=== PATIENT | male | born 1990 | race Caucasian/White ===

== ENCOUNTER 2016-11-30 18:40 | Emergency (ER) | payer SELFPAY ==
[2016-11-30 19:02] VITALS: BP 134/71; PULSE 67; TEMP 99.4; BMI 22.3
--- NOTE | 2016-11-30 19:14 | PDOC ---
[id number] is a 26 year old male, with a significant past medical history migraines (aleve), who presents to the emergency department with right ear pain since yesterday and a migraine headache today. He states he had a low-grade fever and runny nose on Monday, which resolved on Monday. He reports the onset of his ear pain occurred on Monday and has progressed today with involvement of a right-sided migraine. He states his migraines are typically right-sided and managed with Aleve. He reports taking Aleve today with little to no relief. He also reports using eardrops he picked up from [employer] this morning with no relief of pain. He also states he uses earbuds for listening to music. He denies recent travel or sick contacts. He denies chest pain, shortness of breath, headache and dizziness. He denies fever, chills, nausea, vomit, diarrhea and constipation. He denies dysuria, frequency, urgency and hematuria. Allergies: NKDA Social history: daily tobacco use (1 pack every 3 days) <Lety Cedillo - Last Filed: 11/30/16 19:41> <Ani Donohue - Last Filed: 12/01/16 04:47> - General Chief Complaint: Pain Stated Complaint: RIGHT EAR ACHE Time Seen by Provider: 11/30/16 19:12 Past History <Lety Cedillo - Last Filed: 11/30/16 19:41> - Past Medical History Cardiac Disorders: Yes (HEART MURMUR) - Immunization History Immunization Up to Date: Yes - Psycho/Social/Smoking Cessation Hx Anxiety: No Suicidal Ideation: No Smoking Status: Yes Smoking History: Current every day smoker Have you smoked in the past 12 months: Yes Number of Cigarettes Smoked Daily: 10 Information on smoking cessation initiated: Yes 'Breaking Loose' booklet given: 11/30/16 Hx Alcohol Use: No Drug/Substance Use Hx: Yes (MARIJUANA) Substance Use Type: Marijuana Hx Substance Use Treatment: No <Ani Donohue - Last Filed: 12/01/16 04:47> - Past Medical History Allergies/Adverse Reactions: Allergies Allergy/AdvReac Type Severity Reaction Status Date / Time No Known Allergies Allergy Verified 11/30/16 18:45 Home Medications: Ambulatory Orders Amox-Tr/K Cl [Augmentin - 875Mg Tablet] 1 tab PO BID #10 tablet 11/30/16 Neomycin/Polymyxn/Hc [Cortisporin Otic Suspenstion -] 5 drop AD Q4HWA #1 bottle 11/30/16 Review of Systems - Review of Systems Able to Perform ROS?: Yes Comments:: 11/30/16 19:31 CONSTITUTIONAL: Absent: fever, no chills, no fatigue EYES: Absent: visual changes HEENT: (+) right ear pain and migraine headache. Absent: no sore throat CARDIOVASCULAR: Absent: chest pain, no palpitations RESPIRATORY: Absent: cough, no SOB GI: Absent: abdominal pain, no nausea, no vomiting, no constipation, no diarrhea GENITOURINARY: Absent: dysuria, no frequency, no hematuria MUSKULOSKELETAL: Absent: back pain, no arthralgia, no myalgia SKIN: Absent: rash NEURO: Absent: headache <Lety Cedillo - Last Filed: 11/30/16 19:41> *Physical Exam - Vital Signs Last Vital Signs Temp Pulse Resp BP Pulse Ox 99.4 F 67 18 134/71 100 11/30/16 18:45 11/30/16 18:45 11/30/16 18:45 11/30/16 18:45 11/30/16 18:45 - Physical Exam Comments: 11/30/16 19:35 GENERAL: The patient is awake, alert, and fully oriented, in no acute distress. HEAD: Normal with no signs of trauma. EYES: Pupils equal, round and reactive to light, extraocular movements intact, sclera anicteric, conjunctiva clear with no pallor. ENT:(+) moderately erythematous right external canal. TM was dull, moderately bulging and erythematous. No clear perforation in TM . Mild pain with movement of the external portion of the ear. Left ear normal. (+) Throat is mildly erythematous. No exudates. nares patent, Moist mucous membranes. NECK: Normal range of motion, supple without lymphadenopathy, JVD, or masses. LUNGS: Breath sounds equal, clear to auscultation bilaterally. No wheeze/ crackles. HEART: Regular rate and rhythm, normal S1 and S2 without murmur or rub. ABDOMEN: Soft/nontender/nondistended. BS wnl. No guarding or rebound. No palpable masses. No hepatosplenomegaly. EXTREMITIES: Normal range of motion, no edema. No clubbing or cyanosis. No cords , erythema, or tenderness. NEUROLOGICAL: Cranial nerves II through XII grossly intact. Normal speech, normal gait. PSYCH: Normal mood, normal affect. SKIN: Warm, Dry, normal turgor, no rashes or lesions noted. <Lety Cedillo - Last Filed: 11/30/16 19:41> - Vital Signs Last Vital Signs Temp Pulse Resp BP Pulse Ox 99.4 F 67 18 134/71 100 11/30/16 18:45 11/30/16 18:45 11/30/16 18:45 11/30/16 18:45 11/30/16 18:45 <Ani Donohue - Last Filed: 12/01/16 04:47> Medical Decision Making - Medical Decision Making Documentation has been prepared under my direction and personally reviewed by me in its entirety. I attest that this documented accurately reflects all work, treatment, procedures and medical decision making performed by me. As noted above, this 26-year-old man presents with right ear pain; he had an antecedent upper respiratory infection 3 days ago. Exam reveals evidence of otitis externa as well as otitis media. No clear evidence of perforation. Patient will be treated with Cortisporin suspension as well as Augmentin. Patient has no general medical doctor and has not seen ENT physician in the past ; patient will be given referral information for Dr. Ramirez otolaryngology group with whom he should follow-up within the next 5 days. He should return to the ER if he has severe pain or develops fever <Ani Donohue - Last Filed: 12/01/16 04:47> *DC/Admit/Observation/Transfer - Attestations Scribe Attestion: 11/30/16 19:35 Documentation prepared by Lety Cedillo, acting as medical sales associate for Ani Donohue MD <Lety Cedillo - Last Filed: 11/30/16 19:41> <Ani Donohue - Last Filed: 12/01/16 04:47> Diagnosis at time of Disposition: Otitis media Qualifiers: Otitis media type: suppurative Laterality: right Chronicity: acute Recurrence: not specified as recurrent Spontaneous tympanic membrane rupture: without spontaneous rupture Qualified Code(s): H66.001 - Acute suppurative otitis media without spontaneous rupture of ear drum, right ear Otitis externa Qualifiers: Otitis externa type: unspecified type - Discharge Dispostion Disposition: HOME Condition at time of disposition: Stable - Prescriptions Prescriptions: Amox-Tr/K Cl [Augmentin - 875Mg Tablet] 1 tab PO BID #10 tablet Neomycin/Polymyxn/Hc [Cortisporin Otic Suspenstion -] 5 drop AD Q4HWA #1 bottle - Referrals Referrals: Amadeo Ramirez MD [Staff Physician] - - Patient Instructions Printed Discharge Instructions: Middle Ear Infection, DI for Otitis Externa Additional Instructions: cortisporin drops in right ear every 4 hrs while awake for 5 days augmentin 875/125 twice a day for 5 days(take with food) naproxen/ibuprofen/acetaminophen as needed for pain followup with ENT(Dr Ramirez group) within 5 days return to ER if pain worsens or you develop fever
== END 2016-11-30 19:46 | disposition home or self-care (01) ==
LOC: FER 18:40
DX: H66.001 Acute suppurative otitis media without spontaneous rupture of ear drum, right ear (principal); R01.1 Cardiac murmur, unspecified; F17.210 Nicotine dependence, cigarettes, uncomplicated
CPT/HCPCS: 99281-25

== ENCOUNTER 2021-04-11 00:20 | Emergency (ER) | payer OTHER ==
[2021-04-11 00:41] VITALS: BP 107/78; PULSE 88; TEMP 98.8; BMI 25.1
[2021-04-11] MEDS ORDERED: metroNIDAZOLE 250 MG TABLET PO ONE (01:26)
[2021-04-11] MEDS ORDERED: IBUPROFEN 600 MG TABLET (FP) PO ONE ×2 (01:27→01:31)
[2021-04-11] MEDS ORDERED: metroNIDAZOLE 250 MG TABLET ONE (01:31)
== END 2021-04-11 02:56 | disposition home or self-care (01) ==
LOC: JER 00:20
DX: K08.89 Other specified disorders of teeth and supporting structures (principal)
CPT/HCPCS: 99283-25